=== PATIENT | female | born 1935 | race Caucasian/White ===

== ENCOUNTER 2019-01-31 06:44 | Inpatient (IN) ==
[2019-01-31] MEDS ORDERED: CARDIZEM IV ONE (07:18)
--- NOTE | 2019-01-31 07:25 | PROVIDER DOCUMENTATION ---
HPI-Cardiac General - General Chief Complaint: Shortness of Breath Stated Complaint: CHEST PAIN,SOB Time Seen by Provider: 01/31/19 07:18 Source: patient Allergies/Adverse Reactions: Patient Allergies Allergy/AdvReac Type Severity Reaction Status Date / Time Penicillins Allergy RASH Verified 10/18/17 05:21 mycin drugs Allergy NAUSEA/VOMI Uncoded 10/18/17 05:21 TING Home Medications: Home Medication List Medication Instructions Recorded Confirmed Last Taken Type Cetirizine HCl [Zyrtec] 5 mg PO PRN PRN 10/18/17 10/18/17 10/16/17 History Cholecalciferol (Vit D3) [Vitamin 5,000 unit PO DAILY 10/18/17 10/18/17 1 Month Ago History D3] ~09/17/17 Cyanocobalamin (Vitamin B-12) 1,000 mcg PO DAILY 10/18/17 10/18/17 10/17/17 History [Vitamin B-12] LISINOpril/HCTZ [Prinzide 1 tab PO DAILY 10/18/17 10/18/17 10/17/17 History 20/12.5MG] Aspirin [Adult Low Dose Aspirin EC] 81 mg PO DAILY #30 tablet. 10/23/17 Unknown Rx Metoprolol [Lopressor] 25 mg PO BID #60 tab 10/23/17 Unknown Rx - History of Present Illness-Cardiac Nature of Presenting Problem: 83 y/o WF c/o palpitations and sob since 3 am today. Pt denies any CP or other problems in the eR. Quality of Pain: reports: none Severity in ED: mild Onset/Duration: 4-6 hours ago Timing: still present Context/Activities at Onset: reports: rest Modifying Factors: improves with: nothing Palpitation Quality: irregular History of arrythmia: reports: A-Fib Recent use of:: reports: no stimulants Nitro Today/Relief: reports: no nitro taken today Aspirin Treatment Today: reports: no aspirin today Prior Chest Pain/Cardiac Workup: reports: no prior chest pain Associated Symptoms: reports: shortness of breath Similar Symptoms Previously?: Yes Recently Seen Here or By Another Healthcare Provider: No Review of Systems - Adult - REVIEW OF SYSTEMS - ADULT Constitutional: reports: no symptoms reported, see HPI Eyes: reports: no symptoms reported, see HPI Ears, Nose, Mouth & Throat: reports: no symptoms reported, see HPI Cardiovascular: reports: see HPI, irregular heart rate Respiratory: reports: see HPI, shortness of breath Gastrointestinal: reports: no symptoms reported, see HPI Genitourinary: reports: no symptoms reported, see HPI Musculoskeletal: reports: no symptoms reported, see HPI Integumentary: reports: no symptoms reported, see HPI Neurological: reports: no symptoms reported, see HPI Psychiatric: reports: no symptoms reported, see HPI Endocrine: reports: no symptoms reported, see HPI Hematologic/Lymphatic: reports: no symptoms reported, see HPI Allergic/Immunologic: reports: no symptoms reported, see HPI All Other Systems: Reviewed and Negative Past History - Adult - PAST MEDICAL HISTORY-ADULT Review of Records: reports: Nursing Assessment Review, Medications Reviewed, Social history reviewed & non-contributory. Physical Exam-General - PHYSICAL EXAM-ADULT Initial Vital Signs Reviewed: Yes - CONSTITUTIONAL General Appearance: appears well, alert, no apparent distress - EYES Eyes: PERRL/EOMI - HEAD, EARS, NOSE, MOUTH & THROAT HENMT: normocephalic/atraumatic, moist mucous membranes - NECK Neck: non-tender, full range of motion, supple, normal inspection - RESPIRATORY Respiratory: chest non-tender, lungs clear, normal breath sounds, no pleuratic chest pain, no respiratory distress, no accessory muscle use - CARDIOVASCULAR Cardiovascular: normal peripheral pulses, no edema, no gallop, no JVD, no murmur , irregularly irregular - GASTROINTESTINAL (ABDOMEN) Abdominal Exam: normal bowel sounds, non tender, soft, no organomegaly, no pulsatile mass - LYMPHATIC Lymphatic: no adenopathy - MUSCULOSKELETAL Back Exam: normal inspection, no CVA tenderness, no vertebral tenderness Extremity: normal range of motion, non-tender, normal gait, normal inspection, no pedal edema, no calf tenderness, normal capillary refill - SKIN Integumentary: normal color, normal turgor - NEUROLOGIC Neurologic: qm nurse II-XII nml as tested, grossly normal, no motor/sensory deficits - PSYCHIATRIC Psych/Mental Status: normal mood/affect, normal thought content, normal thought process, oriented x 3 Progress - PLAN OF CARE/RESULTS Progress/Plan/Lab Results: Vital Signs - 8 hr 01/31/19 06:53 01/31/19 07:06 01/31/19 07:08 Temperature 97.3 F L Pulse Rate 87 100 H 143 H Respiratory Rate 18 25 H 18 Blood Pressure 117/72 98/56 O2 Sat by Pulse Oximetry 90 L 94 L 95 01/31/19 07:10 01/31/19 07:17 01/31/19 07:20 Temperature Pulse Rate 143 H 94 H 124 H Respiratory Rate 25 H 23 27 H Blood Pressure 110/64 O2 Sat by Pulse Oximetry 95 93 L 93 L 01/31/19 07:30 01/31/19 07:33 01/31/19 07:40 Temperature Pulse Rate 130 H 146 H 71 Respiratory Rate 23 21 22 Blood Pressure 104/76 O2 Sat by Pulse Oximetry 94 L 93 L 93 L 01/31/19 07:48 01/31/19 07:50 01/31/19 07:56 Temperature Pulse Rate 78 70 68 Respiratory Rate 21 19 18 Blood Pressure 93/52 93/52 O2 Sat by Pulse Oximetry 93 L 94 L 93 L 01/31/19 08:00 01/31/19 08:02 01/31/19 08:10 Temperature Pulse Rate 48 L 69 67 Respiratory Rate 19 22 19 Blood Pressure 113/58 100/61 O2 Sat by Pulse Oximetry 94 L 93 L 94 L 01/31/19 08:17 01/31/19 08:20 01/31/19 08:30 Temperature Pulse Rate 71 71 77 Respiratory Rate 20 23 16 Blood Pressure 110/64 O2 Sat by Pulse Oximetry 94 L 94 L 93 L 01/31/19 08:32 01/31/19 08:36 01/31/19 08:40 Temperature Pulse Rate 65 50 L 69 Respiratory Rate 18 21 19 Blood Pressure 113/58 121/57 O2 Sat by Pulse Oximetry 93 L 92 L 94 L 01/31/19 08:43 01/31/19 08:50 01/31/19 08:52 Temperature Pulse Rate 63 67 70 Respiratory Rate 19 17 17 Blood Pressure 94/62 98/58 O2 Sat by Pulse Oximetry 93 L 94 L 93 L 01/31/19 09:00 01/31/19 09:03 01/31/19 09:10 Temperature Pulse Rate 67 70 69 Respiratory Rate 24 19 22 Blood Pressure 104/53 O2 Sat by Pulse Oximetry 94 L 94 L 93 L 01/31/19 09:12 01/31/19 09:20 01/31/19 09:23 Temperature Pulse Rate 73 67 69 Respiratory Rate 18 17 22 Blood Pressure 106/63 111/55 O2 Sat by Pulse Oximetry 93 L 93 L 93 L 01/31/19 09:33 01/31/19 09:43 01/31/19 10:03 Temperature Pulse Rate 76 71 66 Respiratory Rate 18 15 19 Blood Pressure 102/63 97/55 98/57 O2 Sat by Pulse Oximetry 95 95 94 L 01/31/19 10:13 01/31/19 10:22 01/31/19 10:30 Temperature Pulse Rate 66 71 66 Respiratory Rate 19 19 18 Blood Pressure 96/55 106/61 106/61 O2 Sat by Pulse Oximetry 94 L 94 L 94 L Laboratory Results - last 24 hr 01/31/19 01/31/19 01/31/19 07:18 07:18 07:18 WBC 11.94 H RBC 5.03 Hgb 13.5 Hct 40.7 MCV 80.9 L MCH 26.8 L MCHC 33.2 RDW Std Deviation 14.3 Plt Count 440 H MPV 9.3 Immature Gran % (Auto) 0.3 Neut % (Auto) 67.0 Lymph % (Auto) 19.1 L Carroll % (Auto) 12.0 H Eos % (Auto) 1.3 Baso % (Auto) 0.3 Immature Gran # (Auto) 0.04 Neut # (Auto) 8.01 H Lymph # (Auto) 2.28 Carroll # (Auto) 1.43 H Eos # (Auto) 0.15 Baso # (Auto) 0.03 PT INR PTT (Actin FS) Sodium Potassium Chloride Carbon Dioxide Anion Gap BUN Creatinine Estimated GFR/1.73 m2 BUN/Creatinine Ratio Glucose Calculated Osmolality Calcium Total Bilirubin AST ALT Alkaline Phosphatase Creatine Kinase 395 H Creatine Kinase Index 2.1 CK-MB (CK-2) 8.10 H Troponin T 0.020 Ojp-F-Wiwmsnxmfbj Pept Total Protein Albumin Globulin Albumin/Globulin Ratio 01/31/19 01/31/19 01/31/19 07:18 07:18 07:18 WBC RBC Hgb Hct MCV MCH MCHC RDW Std Deviation Plt Count MPV Immature Gran % (Auto) Neut % (Auto) Lymph % (Auto) Carroll % (Auto) Eos % (Auto) Baso % (Auto) Immature Gran # (Auto) Neut # (Auto) Lymph # (Auto) Carroll # (Auto) Eos # (Auto) Baso # (Auto) PT 17.4 H INR 1.32 PTT (Actin FS) 69.8 H Sodium 135 L Potassium 3.6 Chloride 96 L Carbon Dioxide 22 L Anion Gap 17 BUN 27 H Creatinine 1.4 H Estimated GFR/1.73 m2 36 BUN/Creatinine Ratio 19 Glucose 108 H Calculated Osmolality 276 Calcium 8.6 L Total Bilirubin 0.84 AST 28 ALT 10 Alkaline Phosphatase 86 Creatine Kinase Creatine Kinase Index CK-MB (CK-2) Troponin T Zoa-U-Mpdqyqtgfew Pept 834 H Total Protein 6.8 Albumin 4.1 Globulin 2.7 Albumin/Globulin Ratio 1.5 Orders Category Date Time Status cxr [CHEST-1 VIEW] [RAD] Stat Exams 01/31/19 07:18 Completed CBC WITH ELECTRONIC DIFF [HEME] Stat Lab 01/31/19 07:18 Completed CK PROFILE [SP CHEM] Stat Lab 01/31/19 07:18 Completed COMPREHENSIVE METABOLIC PANEL [CHEM] Stat Lab 01/31/19 07:18 Completed PRO B-NATRIURETIC PEPTIDE Stat Lab 01/31/19 07:18 Completed PT [PROTIME WITH INR] [COAG] Stat Lab 01/31/19 07:18 Completed PTT [COAG] Stat Lab 01/31/19 07:18 Completed TROPONIN T Stat Lab 01/31/19 07:18 Completed Dextrose 5%-Water Inj [D5w] 100 ml Med 01/31/19 07:30 Active Diltiazem [Cardizem] 125 mg IV As Directed mls/hr Diltiazem [Cardizem] Med 01/31/19 07:18 Discontinued 20 mg IV NOW ONE EKG [EKG] Stat Ther 01/31/19 06:48 Draft Result Diagrams: 01/31/19 07:18 01/31/19 07:18 - REASSESSMENT Reassessment #1 Time Reassessed: 11:41 (Assumed care at shift change. heart is IRIR, Lungs clear. She awoke with sx this am. ) Status: improving - CONSULTS/PCP/HOSPITALIST Notification #1 *Consult/PCP/Hospitalist*: Reese Time Discussed: 11:52 Consult Disposition: Admit - CHANGE OF SHIFT REPORT (ED Provider) 1 Report Given and Care Transferred to:: Dr Harmon Time of Transfer: 07:00 Items Pending: Labs Departure - Departure Date of Disposition Decision: 01/31/19 Time of Disposition Decision: 11:45 DIAGNOSIS: Atrial fibrillation with RVR Disposition: ADMITTED INPATIENT 09 Certified Medical Emergency: Emergent Condition: Good Referrals and Follow-Ups: Janet Leigh MD [Primary Care Provider] - - Critical Care Note This patient required my direct & personal management of CC.: No Attestation - Physician/ RAMONA Attestation Patient care was provided by Advanced Practice Provider:: No The physician spent face to face time with patient:: Yes Advanced Practice Provider documentation review:: Supervising physician onsite and consulted in the evaluation and care of this patient. The physician did have a face to face encounter with the patient.
[2019-01-31] MEDS ORDERED: CARDIZEM 125 MG in D5W 100 ML IV SCH (07:30)
[2019-01-31 07:40] LABS: BASO# 0.03 X1000 (0.0-0.2); BASO% 0.3 % (0.0-0.8); EOS# 0.15 X1000 (0.0-0.7); EOS% 1.3 % (0.0-10.0); HEMATOCRIT 40.7 % (37.0-47.0); HEMOGLOBIN 13.5 g/dL (12.0-16.0); IMM GRAN# 0.04 X1000 (0.0-0.04); IMM GRAN% 0.3 % (0.0-0.5); LYMPH# 2.28 X1000 (1.2-3.4); LYMPH% 19.1 % (20.5-51.1); MCH 26.8 PG (27-31); MCHC 33.2 g/dL (33-37); MCV 80.9 FL (81-99); MONO# 1.43 X1000 (0.11-0.59); MPV 9.3 FL (7.4-10.4); NEUT# 8.01 X1000 (1.4-6.5); PLT 440 X1000 (130-400); RBC 5.03 XMIL (4.2-5.4); RDW 14.3 % (11.5-14.5); WBC 11.94 X1000 (4.8-10.8)
[2019-01-31 07:52] LABS: INR 1.32; PROTIME 17.4 Seconds (11.0-16.0)
[2019-01-31 07:53] LABS: ALB/GLOB RATIO 1.5; ALBUMIN 4.1 g/dL (3.5-5.0); CALCIUM 8.6 mg/dL (8.8-10.2); CREATININE 1.4 mg/dL (0.5-0.9); POTASSIUM 3.6 mmol/L (3.5-5.1); TOTAL BILIRUBIN 0.84 mg/dL (0.20-1.00); TOTAL PROTEIN 6.8 g/dL (6.3-8.3)
--- NOTE | 2019-01-31 07:53 | Diag Imaging Result Doc PS360 ---
EXAM: CHEST-1 VIEW 01/31/2019 HISTORY: palpitations TECHNIQUE: AP portable at 0744 COMMENT: Compared to the previous study of 10/21/2017 the lungs are better expanded and there is less opacification of the right lower lobe. The left base is also clearer than it was. IMPRESSION: Improved bibasilar atelectasis. Electronically signed by Bernabe Fairbanks 01/31/2019 7:51 AM
[2019-01-31 07:55] LABS: PTT 69.8 Seconds (22.3-41.8)
[2019-01-31 08:18] LABS: CK INDEX 2.1 (0.0-2.5); CK-MB 8.1 ng/mL (0.0-5.0)
--- NOTE | 2019-01-31 08:55 | EKG Report ---
Test Performed on : 01/31/2019 07:11:40 AM Test Reason : cp Blood Pressure : / mmHG Vent. Rate : 145 BPM Atrial Rate : 340 BPM P-R Int : 000 ms QRS Dur : 082 ms QT Int : 364 ms P-R-T Axes : 000 018 081 degrees QTc Int : 565 ms Atrial fibrillation. with rapid ventricular response. Nonspecific ST and T wave abnormality Abnormal ECG When compared with ECG of 22-OCT-2017 06:40, Atrial fibrillation. has replaced Sinus rhythm. Vent. rate has increased BY 67 BPM Nonspecific T wave abnormality now evident in Inferior leads Nonspecific T wave abnormality now evident in Anterolateral leads Unconfirmed Result
[2019-01-31] MEDS ORDERED: LOVENOX 1 MG/KG SUBQ ONE ×2 (11:52→11:59)
[2019-01-31] MEDS ORDERED: NS 1,000 ML IV ONE (11:52)
[2019-01-31] MEDS ORDERED: LOVENOX SUBQ ONE (12:30)
--- NOTE | 2019-01-31 14:15 | EKG Report ---
Test Performed on : 01/31/2019 1:57:32 PM Test Reason : pt. converted to sinus rhythm Blood Pressure : / mmHG Vent. Rate : 060 BPM Atrial Rate : 060 BPM P-R Int : 170 ms QRS Dur : 078 ms QT Int : 454 ms P-R-T Axes : 064 010 014 degrees QTc Int : 454 ms Normal sinus rhythm. Normal ECG When compared with ECG of 31-JAN-2019 07:11, (Unconfirmed) Sinus rhythm. has replaced Atrial fibrillation. Vent. rate has decreased BY [address] no longer depressed in Anterolateral leads Nonspecific T wave abnormality, improved in Inferior leads Nonspecific T wave abnormality no longer evident in Anterolateral leads Confirmed by Felipe Salinas MD ([id number]) on 02/01/2019 9:24:55 PM
[2019-01-31] MEDS: LOVENOX SUBQ ONE ×2 (14:56→14:57)
[2019-01-31 15:16] LABS: URINE SOURCE CLEAN CATCH
[2019-01-31 15:20] LABS: BILIRUBIN URINE NEGATIVE (NEGATIVE); BLOOD URINE SMALL (NEGATIVE); COLOR YELLOW; GLUCOSE URINE NEGATIVE (NEGATIVE); KETONE URINE 20 mg/dL (NEGATIVE); LEUKOCYTES URINE LARGE (NEGATIVE); NITRITE URINE NEGATIVE (NEGATIVE); PROTEIN URINE NEGATIVE (NEGATIVE); SP GRAVITY URINE 1.014; TURBIDITY URINE HAZY (CLEAR); UROBILINOGEN URINE NORMAL (NORMAL)
[2019-01-31 15:21] LABS: UR EPITHELIAL CELLS <10 /HPF (<10); URINE BACTERIA NEGATIVE /HPF; URINE RBC <10 /HPF (<10); URINE WBC TNTC /HPF (<10)
[2019-01-31] MEDS: LOPRESSOR PO SCH ×2 (16:42→20:02)
[2019-01-31] MEDS: ELIQUIS PO SCH (20:02)
--- NOTE | 2019-01-31 20:20 | CONSULTATION ---
DATE OF CONSULTATION: 01/31/2019 IMPRESSION: 1. Recurrent atrial fibrillation with rapid ventricular rate. Spontaneously converted back to sinus rhythm. Patient symptomatic with palpitations and shortness of breath. 2. Previous atrial fibrillation, postoperatively following cholecystectomy last year. 3. Hypertension. 4. Gastroesophageal reflux disease. RECOMMENDATIONS: 1. Given significant CHADs Vasc score, thromboembolic risk appears to justify anticoagulation with Eliquis. Given patient's age, weight and renal function, favor using Eliquis 2.5 mg p.o. b.i.d. 2. Increase metoprolol to enhance rate control. 3. Follow up echocardiography. 4. Conservative cardiovascular management overall. HISTORY: This 83-year-old white female with past history of previous atrial fibrillation. Following cholecystectomy last year, hypertension, hyperlipidemia, gastroesophageal reflux was admitted to the emergency room with atrial fibrillation with rapid ventricular rate. She relates that around 3 a.m. she awoke with tachy palpitations and shortness of breath. She checked her pulse and noted her heart rate was up. The family brought her to the emergency room by automobile. She was found to be in atrial fibrillation with rapid ventricular rate and was started on intravenous diltiazem. Since admission, she has spontaneously converted back to sinus rhythm. She has had no chest pain. She has not had any palpitations or shortness of breath other than recently with her atrial fibrillation. PAST MEDICAL HISTORY: 1. Previous atrial fibrillation following cholecystectomy last year. 2. Hypertension. 3. Hyperlipidemia. 4. Gastroesophageal reflux disease. 5. History of angio-myelolipoma involving left kidney. PAST SURGICAL HISTORY: Includes cholecystectomy and unspecified bladder surgery. MEDICATIONS PRIOR TO ADMISSION: As listed. ALLERGIES: She is allergic or intolerant to penicillin. SOCIAL HISTORY: She is , retired and lives at home. She does not smoke or use alcohol. FAMILY HISTORY: Negative for premature coronary disease. REVIEW OF SYSTEMS: Pulmonary: Noteworthy for shortness of breath with her tachy palpitation but otherwise negative. Gastrointestinal: Negative. Constitutional: Negative. The remainder of the review of systems negative/noncontributory with 14 total systems reviewed. PHYSICAL EXAMINATION: General: This is a pleasant, older white female in no distress. Vital signs: Blood pressure 115/78, heart rate 59 and regular. HEENT: Extraocular movements intact. Mucous membranes moist. Neck: Supple without jugular venous distention. There are no carotid bruits. Chest: Clear to auscultation bilaterally. Cardiac Exam: Reveals a regular rate and rhythm without appreciable murmur or gallop. Abdomen: Soft. Bowel sounds are normal. Extremities: Without edema. Neurologic: Reveals her to be alert and fully oriented. Speech is fluent. She moves all 4 extremities equally well. Skin: Warm dry. Psychiatric: Reveals her mood to be appropriate. DIAGNOSTIC STUDIES: A 12-lead EKG obtained this morning on presentation to the emergency room demonstrates atrial fibrillation with rapid ventricular rate and nonspecific ST and T-wave abnormality. Repeat ECG at 13:57 today shows normal sinus rhythm and is within normal limits. LABORATORY DATA: Includes a sodium 135, potassium 3.6, chloride 96, carbon dioxide 22, BUN 27, creatinine 1.4, glucose 108. CPK 395. CPK/MB index 2.1. Troponin T 0.02. cc: MD Raymundo Toledo MD
[2019-01-31] MEDS ORDERED: ZYRTEC PO PRN (21:15)
--- NOTE | 2019-01-31 21:51 | HISTORY AND PHYSICAL ---
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 HISTORY OF PRESENT ILLNESS: She is an 83-year-old white female who came to the emergency room with palpitations. It has been diagnosed as atrial fibrillation. She had a similar presentation after a laparoscopic cholecystectomy last year by this time. At that time, Dr. Dyer said it was transient after gallbladder surgery. The risk is low. Continued on aspirin and beta blockers. She never had a problem until this time. Patient was given Cardizem and treated in the ER, admitted in [facility]. She converted into sinus. Echocardiogram was doing at bedside. Dr. Dyer was consulted. As a result, a hospital admission was warranted. The patient denies any chest pain, PND, orthopnea, swelling of feet. PAST MEDICAL HISTORY: 1. Recurrent atrial fibrillation. 2. Cataracts. 3. Acid reflux disease. 4. Hyperlipidemia. 5. Hypertension. 6. Osteopenia. 7. Angiomyolipoma of left kidney. 8. B12 deficiency. 9. History of laryngeal cancer and epiglottitis, in remission. PAST SURGICAL HISTORY: 1. Cholecystectomy. 2. Hysterectomy. 3. Left ear tympanoplasty. MEDICATIONS: 1. B12 1000 mcg daily. 2. Vitamin D3 5000 units daily. 3. Zyrtec 5 mg daily. 4. Prinzide 20/12.5 daily. 5. Metoprolol 25 p.o. b.i.d. 6. Aspirin 81 mg daily. 7. Pravastatin 20 mg every other day. ALLERGIES: Reported to penicillin and -mycin. SOCIAL HISTORY: Is . One child. 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 No alcohol. FAMILY HISTORY: Father of heart failure at 88. Mom of 81 from stomach problems. REVIEW OF SYSTEMS: Flu vaccine in 2018, pneumococcal in 2005, tetanus in 2005. Last mammography, April 2018. DEXA scan, November 2014. Colonoscopy was refused. HEENT: No headache. No vision problem. No earache. No sore throat. Neck: No goiter with radiation to the neck. Cardiopulmonary: No chest pain, shortness of breath, PND, orthopnea, swelling of feet, palpitations. GI: No nausea, vomiting, abdominal pain. : No history of hesitancy, frequency, dysuria. Extremities: No swelling of feet. No joint pain. Neurologic: No focal symptoms or seizures. PHYSICAL EXAMINATION: VITAL SIGNS: Temperature is 97.9 degrees, currently heart rate is 60, vitals are stable, 2 L nasal cannula. HEENT: Atraumatic, normocephalic. Pupils equal, react to light. TMs are normal. Nose and throat within normal limits. NECK: Supple. No lymphadenopathy. No goiter. CHEST: Bilateral air entry. HEART: Sounds are regular. No murmur. ABDOMEN: Belly is soft, nontender. Good bowel sounds. No masses palpable. EXTREMITIES: No Peripheral edema or cyanosis. No obvious neurological deficits. INVESTIGATIONS: White cell count 11, hematocrit 40, platelets 440,000. PT 17, INR 1.3, PTT 69. Sodium 135, potassium 3.6, BUN 27, creatinine 1.4, glucose 108, calcium 8.6. CK was high. Troponin was negative. ProBNP 834. Urinalysis positive for infection. Chest x-ray: Borderline cardiomegaly, nothing acute. Echocardiography report is awaiting. Initial EKG was rapid atrial fibrillation, currently in sinus. ASSESSMENT AND PLAN: An 83-year-old white female admitted to the hospital with: 1. Recurrent atrial fibrillation, converted into sinus, currently on Eliquis and metoprolol. 2. Possible urinary tract infection. Follow up on urine for culture and sensitivity. 3. Reconcile home medications and check the thyroid function tests, cardiac enzymes, and echocardiography report. 4. Consult with Dr. Dyer. 5. Will follow up. cc: Raymundo Leigh MD
[2019-02-01 06:06] LABS: INR 1.01; PROTIME 14.2 Seconds (11.0-16.0)
[2019-02-01 06:20] LABS: BASO# 0.02 X1000 (0.0-0.2); BASO% 0.3 % (0.0-0.8); EOS# 0.21 X1000 (0.0-0.7); EOS% 3.4 % (0.0-10.0); HEMATOCRIT 35.2 % (37.0-47.0); HEMOGLOBIN 11.3 g/dL (12.0-16.0); LYMPH# 1.47 X1000 (1.2-3.4); LYMPH% 23.5 % (20.5-51.1); MCH 26.7 PG (27-31); MCHC 32.1 g/dL (33-37); MONO% 14.4 % (1.7-9.3); MPV 9.4 FL (7.4-10.4); NEUT# 3.66 X1000 (1.4-6.5); NEUT% 58.4 % (42.2-75.2); PLT 331 X1000 (130-400); RBC 4.24 XMIL (4.2-5.4); RDW 14.2 % (11.5-14.5); WBC 6.26 X1000 (4.8-10.8)
[2019-02-01 06:27] LABS: CALCIUM 8.5 mg/dL (8.8-10.2); MAGNESIUM 1.9 mg/dL (1.5-2.7); POTASSIUM 3.8 mmol/L (3.5-5.1)
[2019-02-01 06:34] LABS: FREE T4 1.24 ng/dL (0.93-1.70); TSH 2.38 uIUmL (0.27-4.20)
[2019-02-01 06:35] LABS: HEMOGLOBIN A1C 5.4 % (4.8-6.0)
[2019-02-01 07:00] LABS: CK INDEX 2.4 (0.0-2.5); CK-MB 4.75 ng/mL (0.0-5.0)
[2019-02-01] MEDS: LOPRESSOR PO SCH (08:00)
[2019-02-01] MEDS: ELIQUIS PO SCH (08:00)
--- NOTE | 2019-02-01 08:00 | EKG Report ---
Test Performed on : 02/01/2019 07:07:34 AM Test Reason : afib Blood Pressure : / mmHG Vent. Rate : 075 BPM Atrial Rate : 075 BPM P-R Int : 160 ms QRS Dur : 072 ms QT Int : 416 ms P-R-T Axes : 077 031 046 degrees QTc Int : 464 ms Normal sinus rhythm. Cannot rule out Anterior infarct , age undetermined Abnormal ECG When compared with ECG of 31-JAN-2019 13:57, (Unconfirmed) No significant change was found Confirmed by Felipe Salinas MD ([id number]) on 02/02/2019 6:19:26 PM
[2019-02-01] MEDS ORDERED: VITAMIN D PO SCH (09:00)
[2019-02-01] MEDS ORDERED: ASPIRIN EC PO SCH (09:00)
[2019-02-01] MEDS ORDERED: VITAMIN B-12 PO SCH (09:00)
--- NOTE | 2019-02-01 09:58 | ECHO REPORT ---
ORDER DATE: 01/31/2019 INTERPRETING PHYSICIAN: Dr. Velasquez REQUESTING PHYSICIAN: Hospitalist. CLINICAL INDICATIONS: This is an 83-year-old female with shortness of breath, chest pain, atrial fibrillation. Optison was added to this study to optimize visualization of endocardium. Parasternal views were very limited. M-MODE MEASUREMENTS: Right ventricle: cm. Left ventricle end diastole: 3.8 cm. Left ventricle end systole: 2.4 cm. Posterior wall: 1.6 cm. Interventricular septum: 0.7 cm. Left atrium: 3.3 cm. Aortic root: 2.6 cm. SUMMARY OF 2-DIMENSIONAL IMAGIN. Left ventricular function is normal. Ejection fraction is estimated at 65% to 70%. There is no wall motion abnormality. 2. Right ventricle appears to be normal. 3. The atria are probably within normal range. 4. Aortic valve is grossly normal. Color flow mapping is unremarkable. 5. Mitral valve also grossly normal. Color flow mapping is unremarkable. 6. The pulse wave Doppler of mitral inflow shows normal E/A ratio. 7. The tissue Doppler of septal and lateral mitral annulus averages 7 cm. 8. There is no diastolic dysfunction. 9. Pulmonic valve is normal. 10.Tricuspid valve shows very mild degree of regurgitation. 11.Pulmonary pressure is grossly estimated at 40 mmHg. 12.There is no pericardial effusion, mass or thrombus. Clinical correlation is recommended. cc: MD Rahel Cunha PA Jagan Reddy, MD
--- NOTE | 2019-02-01 14:54 | PROGRESS NOTE ---
DATE: 02/01/2019 SUBJECTIVE: The patient denies chest discomfort or dyspnea. She continues in sinus rhythm overnight. OBJECTIVE: Blood pressure 133/56 to 191/73. Heart rate 67 with ECG monitor showing sinus rhythm. Oxygen saturation 97-98%. There is no significant jugular venous distention.Chest: Clear to auscultation bilaterally. Cardiac Exam: Reveals a regular rate and rhythm without appreciable murmur or gallop. There is no evidence of peripheral edema. Echocardiography demonstrates left ventricular ejection fraction 65 to 70 percent. There is mild tricuspid regurgitation. Estimated systolic PA pressure by Doppler is 40 mmHg. LABORATORY DATA: Includes a white blood cell count of 6.26, hematocrit 35.2, hemoglobin 11.3, platelet count 331,000. Sodium 139, potassium 3.8, chloride 103, carbon dioxide 26, BUN 24, creatinine 1.0, glucose 85, initial troponin 0.02, follow-up troponin 0.018. TSH 2.38, free T4 1.24. IMPRESSION: 1. Recurrent atrial fibrillation with spontaneous conversion back to sinus rhythm. Suspect paroxysmal atrial fibrillation. 2. Hypertension. 3. Gastroesophageal reflux disease. 4. Hyperlipidemia. RECOMMENDATIONS: 1. Continue increased dose of metoprolol to enhance rate control. 2. Continue anticoagulation with Eliquis 2.5 mg p.o. b.i.d. for thromboembolic risk protection related to atrial fibrillation and significant CHADS-VASc score. 3. Conservative cardiovascular management overall. It would be reasonable for patient to be discharged home later today from a cardiovascular standpoint. cc: MD Raymundo Toledo MD
[2019-02-01 16:18] VITALS: BP 170/76
[2019-02-02] MEDS ORDERED: PRAVACHOL PO SCH (09:00)
--- NOTE | 2019-02-03 04:21 | DISCHARGE SUMMARY ---
ADMISSION DATE: 01/31/2019 DISCHARGE DATE: 02/01/2019 DISCHARGING DIAGNOSIS: Recurrent atrial fibrillation. SECONDARY DIAGNOSES: 1. Acid reflux disease. 2. Hyperlipidemia. 3. Hypertension. 4. Osteopenia. 5. B12 deficiency. 6. History of laryngeal cancer and epiglottic, is in remission. 7. Angiomyolipoma of left kidney. CONSULTS: Dr. Serg Dyer. BRIEF HISTORY: Please see the H and P that was done on 01/31. 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 Patient was found to have rapid atrial fibrillation. She had a similar episode transiently after gallbladder surgery last year. Patient was seen by Dr. Dyer. Since then, she did not have any episodes. HOSPITAL COURSE: She was admitted in [facility]. After started on IV Cardizem drip, she converted to sinus. She remained in sinus. [id number] score is high. She was started on beta blockers, aspirin, and Eliquis. Further workup, echocardiography, thyroid function tests were normal. The patient will have outpatient stress test. LABS: CBC: White cell count 6.2, hematocrit 35, platelets 331,000. PT 48, INR 1.0. Sodium 139, potassium 3.8, chloride 103, BUN 24, creatinine 1.0. Calcium 1.9. Cardiac enzymes were negative. Thyroid function tests were normal. Echocardiography report revealed LV function 65 to 70 percent. No significant valvular heart disease seen. DISCHARGE INSTRUCTIONS: The patient is anxious to go home. 1. Vitamin B12, 1000 mcg daily, vitamin D3 5000 units daily, cetirizine 5 mg daily, Prinzide 20/12.5 daily, metoprolol 25 p.o. b.i.d., aspirin 81 mg daily, pravastatin 20 daily, Eliquis 2.5 p.o. b.i.d. 2. Follow up in my office next week. We will set up outpatient chemical stress test. cc: MD Serg Porras MD
== END 2019-02-01 18:34 | disposition home or self-care (01) | DRG 310 ==
LOC: ED 06:44 → 3S 12:13
PROVIDERS: ADMIT Internal Medicine; ATTEND Internal Medicine
CPT/HCPCS: 71010; 71045; 80048; 80053; 81001; 82550; 82553; 83036; 83735; 83880; 84439; 84443; 84484; 85025; 85610; 85730; 87088; 93005; 93010; 93306; A9270; C8929; J1650; J7030; J7060; Q9957

== ENCOUNTER 2019-04-07 15:43 | Inpatient (IN) ==
[2019-04-07] MEDS ORDERED: LASIX IV ONE (16:01)
[2019-04-07 16:58] LABS: ALLEN TEST NO; BE 5.9 mmoll (-3.0-3.0); BLOOD TYPE ARTERIAL; HCO3-(ACT) 29.5 mmoll (20.0-26.0); METHB 0.3 % (0.0-1.5); O2(CT) 14.3 mL/dL (15.0-23.0); O2HB 95.9 % (95.0-99.0); PCO2(98.6) 44 mmHg (35-45); PO2(98.6) 83 mmHg (60-100); SAMPLE BLOOD; SAO2 97.7 % (95.0-100.0); THB 10.5 g/dL (11.5-17.4); pH(98.6) 7.45 (7.35-7.45)
--- NOTE | 2019-04-07 16:58 | EKG Report ---
Test Performed on : 04/07/2019 4:52:41 PM Test Reason : chest pain Blood Pressure : / mmHG Vent. Rate : 055 BPM Atrial Rate : 055 BPM P-R Int : 154 ms QRS Dur : 080 ms QT Int : 470 ms P-R-T Axes : 052 -06 029 degrees QTc Int : 449 ms Sinus bradycardia. Otherwise normal ECG When compared with ECG of 01-FEB-2019 07:07, No significant change was found Confirmed by Aidan KISER, Anjel Barber ([id number]) on 04/07/2019 10:18:34 PM
[2019-04-07 17:00] LABS: MODALITY CANNULA
[2019-04-07 17:05] LABS: BASO# 0.04 X1000 (0.0-0.2); BASO% 0.4 % (0.0-0.8); EOS# 0.26 X1000 (0.0-0.7); EOS% 2.8 % (0.0-10.0); HEMATOCRIT 33.8 % (37.0-47.0); HEMOGLOBIN 10.5 g/dL (12.0-16.0); IMM GRAN# 0.07 X1000 (0.0-0.04); IMM GRAN% 0.8 % (0.0-0.5); LYMPH# 1.24 X1000 (1.2-3.4); LYMPH% 13.3 % (20.5-51.1); MCHC 31.1 g/dL (33-37); MCV 83.7 FL (81-99); MONO# 1.01 X1000 (0.11-0.59); MONO% 10.9 % (1.7-9.3); NEUT# 6.68 X1000 (1.4-6.5); NEUT% 71.8 % (42.2-75.2); PLT 455 X1000 (130-400); RBC 4.04 XMIL (4.2-5.4); RDW 14.8 % (11.5-14.5)
[2019-04-07 17:24] LABS: ALB/GLOB RATIO 1.1; ALBUMIN 3.4 g/dL (3.5-5.0); C REACTIVE PROT QUANT 19.16 mg/L (0.00-5.00); CALCIUM 8.3 mg/dL (8.8-10.2); CREATININE 1.1 mg/dL (0.5-0.9); POTASSIUM 3.9 mmol/L (3.5-5.1); TOTAL BILIRUBIN 0.24 mg/dL (0.20-1.00); TOTAL PROTEIN 6.4 g/dL (6.3-8.3)
[2019-04-07 18:08] LABS: SED RATE 48 mm/hr (0-20)
[2019-04-07] MEDS: LOPRESSOR PO SCH (19:59)
[2019-04-07] MEDS: ELIQUIS PO SCH (19:59)
--- NOTE | 2019-04-07 21:53 | HISTORY AND PHYSICAL ---
CHIEF COMPLAINT: Shortness of breath, swelling of feet, cough, wheezing, paroxysmal nocturnal dyspnea, orthopnea for the last 5 days. HISTORY OF PRESENT ILLNESS: She is an 83-year-old white female who came to the hospital with the above symptoms. Chest x-ray showed interstitial lung pattern, some mild swelling of feet. The patient appears to be in sinus. She was discharged 2 months ago for recurrent atrial fibrillation on amiodarone. The patient was admitted directly from my office with possible diagnosis of decompensated diastolic heart failure, Cordarone toxicity. The patient was started on oxygen IV Lasix and will follow up. No chest pain. PAST MEDICAL HISTORY: PAF, cataracts, GERD with esophagitis, hyperlipidemia, hypertension, hypopharyngeal cancer in remission, osteopenia, angiomyolipoma of left kidney, vitamin B12 deficiency. PAST SURGICAL HISTORY: Cholecystectomy, hysterectomy, left ear tympanoplasty. MEDICATIONS: Lisinopril/hydrochlorothiazide 20/12.5 daily, metoprolol 25 p.o. b.i.d., pravastatin 20 daily, Eliquis 2.5 p.o. b.i.d., amiodarone 400 daily, Vitamin B12 1000 mcg daily, vitamin D3 5000 units daily, cetirizine 5 mg daily. ALLERGIES: Penicillin and erythromycin. 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 Used to smoke, quit 7 years ago. FAMILY HISTORY: Father of heart failure at 88. Mom of stomach problems/complications. Details are not known. HEALTH MAINTENANCE: Flu vaccine 2017, pneumococcal 2004, mammography 04/2018, tetanus 2004, DEXA scan 2014. REVIEW OF SYSTEMS: HEENT: No headache. No vision problem. No earache. No sore throat, slight deafness. Neck: No neck pain. No rigidity. No goiter. Chest: Shortness of breath, cough, wheezing, swelling. No chest pain. No palpitations. Gastrointestinal: No nausea, vomiting, abdominal pain. Gallbladder was taken out. Genitourinary: No history of hesitancy, frequency, dysuria. Skin: No skin rashes. Musculoskeletal: No joint pain. Neurological exam: No focal symptoms or weakness. PHYSICAL EXAMINATION: VITAL SIGNS: Temperature is 98 degrees, pulse is 58, blood pressure is stable, 2 L nasal cannula 96%. HEENT: Atraumatic, normocephalic. Pupils equal, react to light. TMs are normal. Nose and throat within normal limits. NECK: Supple. No lymphadenopathy. JVD is not elevated. CHEST: Bilateral air entry. Crackles. CARDIOVASCULAR: Heart sounds are regular, distant. No murmur. ABDOMEN: Belly is soft, obese, nontender. Good bowel sounds. EXTREMITIES: 1+ pedal edema. NEUROLOGICAL EXAM: No focal deficits. INVESTIGATIONS: White cell count 9.3, hematocrit 33.8, platelets 455,000. Sedimentation rate 48. ABG: pH is 7.45, pCO2 44, pO2 83, bicarb 28%. Sodium 139, potassium 3.9, BUN 24, creatinine 1.1, glucose 109, calcium 8.3. Cardiac enzymes are normal. CRP slightly elevated, ProBNP 1240. LFTs were normal. Chest x-ray: CHF. ASSESSMENT AND PLAN: 1. An 83-year-old white female came in for shortness of breath, consistent with probable congestive heart failure versus Cordarone toxicity. Last echocardiography 01/31/2019: The ejection fraction is 65% to 90%. Plan is IV Lasix, oxygen, hold the Cordarone. 2. Paroxysmal atrial fibrillation on Eliquis 2.5 p.o. b.i.d. 3. Reconcile home medicines and check the CK troponin, chest x-ray in the morning and also thyroid function tests and if no better consider cardiology consult and follow up. cc: Raymundo Leigh MD
--- NOTE | 2019-04-08 06:42 | EKG Report ---
Test Performed on : 04/08/2019 06:33:29 AM Test Reason : cp Blood Pressure : / mmHG Vent. Rate : 053 BPM Atrial Rate : 053 BPM P-R Int : 180 ms QRS Dur : 080 ms QT Int : 494 ms P-R-T Axes : 065 008 041 degrees QTc Int : 463 ms Sinus bradycardia. Otherwise normal ECG When compared with ECG of 07-APR-2019 16:52, No significant change was found Confirmed by Aidan KISER, Anjel Barber ([id number]) on 04/09/2019 12:07:05 PM
[2019-04-08 07:02] LABS: FREE T4 1.42 ng/dL (0.93-1.70); TSH 3.5 uIUmL (0.27-4.20)
--- NOTE | 2019-04-08 07:38 | Diag Imaging Result Doc PS360 ---
EXAM: CHEST-2 VIEWS INDICATION: hypoxia TECHNIQUE: Two views COMPARISON: 01/31/2019 FINDINGS: There are diffuse mild interstitial infiltrates seen throughout both lungs that are nonspecific. Consider mild edema. There is a more dense focal opacity at the right lung base suggesting likely pneumonia. A follow-up chest radiograph is recommended to assure clearing. The lungs appear somewhat hyperinflated suggesting COPD. The cardiac silhouette is unremarkable. IMPRESSION: Diffuse increased interstitial markings and a focal somewhat rounded opacity at the right lung base. This probably represents focal pneumonia. However, follow-up chest radiograph is recommended to assure clearing. Electronically signed by Kenrick Tatum 04/08/2019 7:35 AM
[2019-04-08] MEDS ORDERED: SOLU-MEDROL IV ONE (08:02)
[2019-04-08] MEDS: PROTONIX IV SCH (08:57)
[2019-04-08] MEDS: ELIQUIS PO SCH ×2 (08:57→20:25)
[2019-04-08] MEDS: LASIX IV SCH (08:57)
[2019-04-08] MEDS: PRINZIDE 20/12.5MG PO SCH (08:57)
[2019-04-08] MEDS: LOPRESSOR PO SCH ×2 (08:57→20:25)
--- NOTE | 2019-04-08 19:00 | PROGRESS NOTE ---
DATE: 04/08/2019 SUBJECTIVE: The patient is a little better. Chest x-ray, interstitial infiltrates with right lower lobe opacity, and most likely amiodarone toxicity. She was given Lasix, and inputs and outputs are negative 1.06 L. OBJECTIVE: HEENT: Within normal limits. Neck: Supple. Chest: Bilateral air entry. Heart sounds are regular. Belly is soft, nontender. Extremities: There is 1+ pedal edema. LABORATORY AND DIAGNOSTIC DATA: PO2 of 83 on 28%. Cardiac enzymes were negative. ProBNP 1250. Thyroid function tests were normal. Chest x-ray, as reported. EKG, sinus bradycardia. ASSESSMENT AND PLAN: 1. Paroxysmal atrial fibrillation. Currently in sinus. Discontinue amiodarone. 2. 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 3. Started on IV steroids. 4. Reconcile home medications. Continue IV diuresis and IV steroids, and repeat the labs on Thursday. Continue on Eliquis 2.5 p.o. b.i.d. and will follow up. LEVEL OF DOCUMENTATION: 25 minutes. cc: Raymundo Leigh MD
[2019-04-08] MEDS: SOLU-MEDROL IV SCH (20:25)
[2019-04-09] MEDS: SODIUM CHLORIDE 0.9% INJ SCH (08:31)
[2019-04-09] MEDS: PRINZIDE 20/12.5MG PO SCH (08:31)
[2019-04-09] MEDS: ELIQUIS PO SCH ×2 (08:31→20:31)
[2019-04-09] MEDS: SOLU-MEDROL IV SCH ×2 (08:31→20:31)
[2019-04-09] MEDS: PRAVACHOL PO SCH (08:31)
[2019-04-09] MEDS: PROTONIX IV SCH (08:31)
[2019-04-09] MEDS: LASIX IV SCH (08:31)
[2019-04-09] MEDS: LOPRESSOR PO SCH ×2 (08:48→20:31)
--- NOTE | 2019-04-09 12:05 | PROGRESS NOTE ---
DATE: 04/09/2019 SUBJECTIVE: Ms Agudelo who is an 83-year-old white female, has paroxysmal atrial fibrillation, interstitial pneumonia, probably Cordarone toxicity. She is on IV steroids. OBJECTIVE: Her heart rate is in the 50s. Blood pressure was 146/95. Part of it could be the effect of steroids. Her white count was 9.3, hemoglobin 10.5, hematocrit 33.8. ASSESSMENT: Overall condition appears to be stable. -3 cc: MD Raymundo Calles MD
[2019-04-10] MEDS: LASIX IV SCH (09:00)
[2019-04-10] MEDS: ELIQUIS PO SCH ×2 (09:00→21:07)
[2019-04-10] MEDS: LOPRESSOR PO SCH ×2 (09:00→21:07)
[2019-04-10] MEDS: SOLU-MEDROL IV SCH ×2 (09:00→21:07)
[2019-04-10] MEDS: PRINZIDE 20/12.5MG PO SCH (09:00)
[2019-04-10] MEDS: PROTONIX IV SCH (09:00)
[2019-04-10] MEDS: SODIUM CHLORIDE 0.9% INJ SCH (09:00)
--- NOTE | 2019-04-10 12:38 | PROGRESS NOTE ---
DATE: 04/10/2019 Ms. Agudelo is feeling better. Her vital signs are stable. She has some pulmonary congestion and pulmonary fibrosis, probably secondary to amiodarone therapy for her atrial fibrillation. -5 cc: MD Raymundo Calles MD
[2019-04-11 00:58] LABS: URINE SOURCE CLEAN CATCH
[2019-04-11 01:02] LABS: BILIRUBIN URINE NEGATIVE (NEGATIVE); BLOOD URINE NEGATIVE (NEGATIVE); COLOR YELLOW; GLUCOSE URINE NEGATIVE (NEGATIVE); KETONE URINE NEGATIVE (NEGATIVE); LEUKOCYTES URINE LARGE (NEGATIVE); NITRITE URINE NEGATIVE (NEGATIVE); PH URINE 6.5; PROTEIN URINE TRACE mg/dL (NEGATIVE); SP GRAVITY URINE 1.022; TURBIDITY URINE CLEAR (CLEAR); UR EPITHELIAL CELLS <10 /HPF (<10); URINE BACTERIA NEGATIVE /HPF; URINE RBC <10 /HPF (<10); URINE WBC 20-40 /HPF (<10); UROBILINOGEN URINE 2 mg/dL (NORMAL)
--- NOTE | 2019-04-11 08:48 | Diag Imaging Result Doc PS360 ---
EXAM: CHEST-2 VIEWS HISTORY: follow up TECHNIQUE: Chest two views COMPARISON: 04/08/2019 FINDINGS: The lungs are hyperexpanded. Decreased interstitial markings compared to the prior exam. No consolidation. No pulmonary edema. No cardiomegaly. No pleural effusions. IMPRESSION: Interval clearing. Electronically signed by Pollo Moreno 04/11/2019 8:45 AM
[2019-04-11] MEDS: LOPRESSOR PO SCH (09:01)
[2019-04-11] MEDS: PROTONIX IV SCH (09:01)
[2019-04-11] MEDS: SOLU-MEDROL IV SCH ×2 (09:01→21:03)
[2019-04-11] MEDS: PRINZIDE 20/12.5MG PO SCH (09:01)
[2019-04-11] MEDS: PRAVACHOL PO SCH (09:01)
[2019-04-11] MEDS: ELIQUIS PO SCH ×2 (09:01→21:03)
[2019-04-11 10:34] LABS: ALLEN TEST YES; BE 10.9 mmoll (-3.0-3.0); BLOOD TYPE ARTERIAL; HCO3-(ACT) 33.4 mmoll (20.0-26.0); O2(CT) 15.6 mL/dL (15.0-23.0); O2HB 95.9 % (95.0-99.0); PO2(98.6) 79 mmHg (60-100); SAMPLE BLOOD; SAO2 97.4 % (95.0-100.0); THB 11.5 g/dL (11.5-17.4); pH(98.6) 7.46 (7.35-7.45)
[2019-04-11 10:37] LABS: MODALITY CANNULA; PCO2(98.6) 51 mmHg (35-45)
--- NOTE | 2019-04-11 22:12 | PROGRESS NOTE ---
DATE: 04/11/2019 SUBJECTIVE: The patient is a lot better. Moved out of the step down. Breathing is much improved. She just came back from the chest x-ray which shows much improved interstitial lung disease after stopping the Cordarone. Currently in sinus rhythm. OBJECTIVE: Vital Signs: Temperature 97.2 degrees, pulse 50, blood pressure is stable, oxygen saturation 95% on room air. HEENT: Exam within normal limits. Neck: supple. No lymphadenopathy. Chest: Bilateral air entry. Heart: Heart sounds are regular. No peripheral edema. Neurological: No obvious neurological deficits. Laboratory data: Arterial blood gases: pCO2 is 51, PO2 is 79. I asked to do this on room air. Cardiac enzymes were negative. Followup chest x-ray is much improved. ASSESSMENT AND PLAN: 1. Shortness of breath due to interstitial pneumonitis, possibly due to Cordarone which has been stopped. 2. IV steroids. We will slowly taper off. 3. Paroxysmal atrial fibrillation. Currently in sinus rhythm. On Eliquis and lisinopril and metoprolol. 4. Hyperlipidemia. On Pravachol. 5. Discontinued amiodarone due to pulmonary toxicity. 6. If she is stable, we will discharge her in the morning and she will follow up in my office. cc: Raymundo Leigh MD
[2019-04-12] MEDS: LOPRESSOR PO SCH ×2 (02:47→08:28)
[2019-04-12] MEDS ORDERED: PROTONIX PO SCH (07:00)
[2019-04-12 07:21] VITALS: BP 149/58
[2019-04-12] MEDS: SOLU-MEDROL IV SCH (08:27)
[2019-04-12] MEDS: ELIQUIS PO SCH (08:28)
[2019-04-12] MEDS: PRINZIDE 20/12.5MG PO SCH (08:28)
--- NOTE | 2019-04-13 04:31 | DISCHARGE SUMMARY ---
ADMISSION DATE: 04/07/2019 DISCHARGE DATE: 04/12/2019 DISCHARGING DIAGNOSIS: Acute shortness of breath due to interstitial pneumonitis due amiodarone. SECONDARY DIAGNOSES: 1. Paroxysmal atrial fibrillation. 2. Bilateral cataracts. 3. Acid reflux disease with esophagitis. 4. Hyperlipidemia. 5. Hypertension. 6. History of hypopharyngeal carcinoma in remission. 7. Angiomyolipoma left kidney. 8. Vitamin B12 deficiency. 9. Osteopenia. BRIEF HISTORY: Please see the H and P that was done on . In brief, she is an 83-year- old white female who was admitted to the hospital directly from my office with acute shortness of breath, cough, wheezing. Chest x-ray with bilateral interstitial infiltrates. She has mild swelling of feet. The patient remained in sinus. The picture is compatible with interstitial pneumonitis from amiodarone. She was admitted in step-down. The patient was started on IV Lasix and IV steroids. Follow up chest x-ray complete improvement. The patient was advised not to take amiodarone. At the time of discharge the patient does not qualify any home oxygen therapy. LABORATORY DATA: CBC: White cell count 9.3, hematocrit 33.8, platelets 455,000. ABG: PH is 7.46, pCO2 is 51, PO2 is 79 on 28%. SMA 7 is normal. Cardiac enzymes were negative. ProBNP 1250. TSH and free T4 is normal. Urinalysis is clear. Urine cultures were negative. Follow up chest x-ray complete improvement. After walking her pulse oximetry is 96 percent on room air. DISCHARGE INSTRUCTIONS: Are As follows: The patient was given pneumococcal vaccine 23 in 2018. Prinzide 20/12.5 daily, metoprolol 25 p.o. b.i.d., pravastatin 20 mg daily, Eliquis 2.5 p.o. b.i.d. Discontinue amiodarone. The patient remained in sinus. Follow up in my office in 10 days. cc: Raymundo Leigh MD
== END 2019-04-12 09:55 | disposition home or self-care (01) | DRG 198 ==
LOC: DIRADM 15:43 → 2N 16:18 → 4N 04-10 18:32
PROVIDERS: ADMIT Internal Medicine; ATTEND Internal Medicine